=== PATIENT | female | born 1950 | race Caucasian/White ===

== ENCOUNTER 2016-08-28 02:33 | Emergency (ER) | payer MEDICARE, OTHER | END 2016-08-28 04:22 | disposition home or self-care (01) | LOC: ER1 02:33 | DX: S30.860A Insect bite (nonvenomous) of lower back and pelvis, initial encounter (principal); I10 Essential (primary) hypertension; F32.9 Major depressive disorder, single episode, unspecified; Z90.49 Acquired absence of other specified parts of digestive tract; W57.XXXA Bitten or stung by nonvenomous insect and other nonvenomous arthropods, initial encounter; Z79.899 Other long term (current) drug therapy | CPT/HCPCS: 99281 ==

== ENCOUNTER → 2020-06-30 | Outpatient (CLI) | payer MEDICARE, OTHER ==
[2020-06-30 09:06] LABS: HEMOGLOBIN 15.5 gm/dl (12.3-15.3); RED BLOOD COUNT 5.27 M/UL (4.00-5.10)
[2020-06-30 09:45] LABS: BUN/CREATININE RATIO 20 (0-10)
[2020-07-02 14:09] LABS: CHOLESTEROL, TOTAL 192 mg/dL (100-199); HDL SIZE 8.7 nm (>=9.2); HDL-C 48 mg/dL (>39); HDL-P (TOTAL) 34.9 umol/L (>=30.5); LARGE HDL-P 4.2 umol/L (>=4.8); LARGE VLDL-P 4.6 nmol/L (<=2.7); LDL SIZE 21.4 nm (>20.5); LDL SIZE 21.4 nm (>=20.8); LDL-C 121 mg/dL (0-99); LDL-P 1183 nmol/L (<1000); LP-IR SCORE 59 (<=45); SMALL LDL-P 278 nmol/L (<=527); TRIGLYCERIDES 129 mg/dL (0-149); VLDL SIZE 49.4 nm (<=46.6)
== END ==
LOC: LAB 08:40
PROVIDERS: Emergency Medicine
DX: H10.89 Other conjunctivitis (principal); I10 Essential (primary) hypertension; J01.00 Acute maxillary sinusitis, unspecified; J20.9 Acute bronchitis, unspecified; K21.9 Gastro-esophageal reflux disease without esophagitis; K29.00 Acute gastritis without bleeding; M51.36 Other intervertebral disc degeneration, lumbar region; M54.2 Cervicalgia; M54.5 Low back pain
CPT/HCPCS: 36415; 80053; 84550; 85025

== ENCOUNTER → 2021-03-28 | Outpatient (CLI) | payer MEDICARE, OTHER ==
[2021-03-28 10:51] LABS: HEMOGLOBIN 15.4 gm/dl (12.3-15.3); RED BLOOD COUNT 5.22 M/UL (4.00-5.10); WHITE BLOOD COUNT 4.5 K/UL (4.5-11.0)
[2021-03-28 11:07] LABS: BUN/CREATININE RATIO 21 (0-10)
== END ==
LOC: LAB 09:49
PROVIDERS: Emergency Medicine
DX: K21.9 Gastro-esophageal reflux disease without esophagitis (principal); R10.84 Generalized abdominal pain; R10.30 Lower abdominal pain, unspecified; R10.2 Pelvic and perineal pain
CPT/HCPCS: 36415; 80053; 83690; 85025

== ENCOUNTER → 2021-05-23 | Day surgery (SDC) | payer MEDICARE, OTHER ==
[~2021-05-23] MED LIST: COZAAR50 MG PO; HYDROCHLOROTH12.5 MG PO; OMEPRAZOLE20 MG PO; ZOFRAN 4 MG TAB4 MG PO
== END | disposition home or self-care (01) ==
LOC: OR 06:32
DX: K59.09 Other constipation (principal); D12.3 Benign neoplasm of transverse colon; K64.0 First degree hemorrhoids; K64.1 Second degree hemorrhoids; K66.0 Peritoneal adhesions (postprocedural) (postinfection); K31.9 Disease of stomach and duodenum, unspecified; K21.00 Gastro-esophageal reflux disease with esophagitis, without bleeding; E66.3 Overweight; I10 Essential (primary) hypertension; Z88.5 Allergy status to narcotic agent; Z88.0 Allergy status to penicillin; Z80.0 Family history of malignant neoplasm of digestive organs; Z72.0 Tobacco use; Z90.710 Acquired absence of both cervix and uterus; Z20.822 Contact with and (suspected) exposure to COVID-19
CPT/HCPCS: J2704; J7040